=== PATIENT | female | born 1940 | race Hispanic/Latino ===

== ENCOUNTER → 2017-12-30 | Outpatient (CLI) | payer MEDICARE ==
--- NOTE | 2017-12-30 13:54 | Diagnostic Imaging Report ---
PROCEDURE:BONE DXA DUAL ENERGY INDICATION: Postmenopausal osteoporosis screening. The patient history questionnaire was completed and is available on PACS. COMPARISON:07/03/2016 and baseline examination on 09/13/2011 FINDINGS: Evaluation of the left hip and lumbar spine was performed utilizing DEXA Hologic bone densitometer. The study is technically adequate. The patient's fracture risk is compared to an age-matched control. The patient denies prior surgery/fracture of the spine, hips or forearm. Left femoral neck bone mineral density: 0.531 g/cm2, T-score is -2.9, Z-score is -0.8. Left total hip bone mineral density: 0.631 g/cm2, T-score is -2.5, Z-score is -0.6. The left total hip bone mineral density change versus baseline (09/13/2011) is -0.7%. The bone mineral density change versus the previous exam (07/03/2016) is -1.4%. Lumbar spine total bone mineral density: 0.760 g/cm2, T-score is -2.6, Z-score is -0.1. The lumbar spine total bone mineral density change versus baseline is -0.6%. The bone mineral density change versus the previous examination is +0.7% IMPRESSION: Bone mineralization by WHO Classification is osteoporosis. The fracture risk is high.. Correlate clinically for the necessity and timing of the next bone mineral density study. Dictated by: Flo Alatorre M.D. on 12/30/2017 at 14:00 Electronically approved by: Flo Alatorre M.D. on 12/30/2017 at 14:00
== END ==
LOC: MAMMO 12:48
PROVIDERS: ATTEND Family Medicine
DX: Z12.31 Encounter for screening mammogram for malignant neoplasm of breast (principal); Z13.820 Encounter for screening for osteoporosis; Z78.0 Asymptomatic menopausal state
CPT/HCPCS: 77067; 77080

== ENCOUNTER → 2018-03-09 | Outpatient (CLI) | payer MEDICARE ==
--- NOTE | 2018-03-09 13:43 | Diagnostic Imaging Report ---
EXAMINATION: PA and lateral views of the chest. COMPARISON: None CLINICAL HISTORY: Chest pain DISCUSSION: The lungs are well-inflated. No focal airspace consolidation, pleural effusion, or pneumothorax. Tortuosity and atherosclerotic calcification of the thoracic aorta. Normal heart size. No pulmonary edema. No acute osseous abnormality. IMPRESSION: No acute cardiopulmonary abnormalities. Signed by: Dr. Rodolfo Espinoza M.D. on 03/09/2018 1:40 PM
== END ==
LOC: RAD 12:55
PROVIDERS: ATTEND Internal Medicine Cardiovascular Disease
DX: R07.9 Chest pain, unspecified (principal)
CPT/HCPCS: 71046

== ENCOUNTER → 2019-02-03 | Outpatient (CLI) | payer OTHER ==
--- NOTE | 2019-02-03 15:15 | Diagnostic Imaging Report ---
EXAM: BONE MINERAL DENSITY HISTORY: Bone mineralization evaluation COMPARISON: None DISCUSSION: Evaluation of the left hip and lumbar spine was performed utilizing DEXA Hologic bone densitometer. The study is technically adequate. Left hip femoral neck bone mineral density: 0.57 g/cm2, T-score is -2.6, Z-score is -0.4. Left hip total bone mineral density: 0.64 g/cm2, T-score is -2.4, Z-score is -0.4. Bone mineralization increased by 1.8%. Lumbar spine total bone mineral density: 0.78 gm/cm2, T-score is -2.4, Z-score is 0.1. Bone mineralization increased by 2.5%. Impression: Bone mineralization by WHO Classification is osteoporosis, the fracture risk is increased. Signed by: Dr. Nirmal Bernabe M.D. on 02/03/2019 3:12 PM
--- NOTE | 2019-02-10 09:13 | Diagnostic Imaging Report ---
#[id number] - MGSCRBIL #BILATERAL DIGITAL SCREENING MAMMOGRAM WITH CAD: 02/03/2019 CLINICAL: Routine screening. Comparison is made to exams dated: 12/30/2017 mammogram and 07/03/2016 mammogram - [facility]. Current study contains 4 films. The tissue of both breasts is heterogeneously dense. This may lower the sensitivity of mammography. Current study was also evaluated with a Computer Aided Detection (CAD) system. Benign appearing calcifications are noted bilaterally. There are benign vascular calcifications in both breasts. No significant masses, calcifications, or other findings are seen in either breast. IMPRESSION: BENIGN There is no mammographic evidence of malignancy. A 1 year screening mammogram is recommended. The patient will be notified by letter of the results. SALOME GUADARRAMA M.D. ct/penrad:02/09/2019 17:19:49 Customer Development Representative: [place] MARTIN(Aminata)(Kenisha), [facility] letter sent: Normal Exam Mammogram BI-RADS: 2 Benign
== END ==
LOC: MAMMO 13:48
PROVIDERS: ATTEND Family Medicine
DX: Z12.31 Encounter for screening mammogram for malignant neoplasm of breast (principal); M81.0 Age-related osteoporosis without current pathological fracture
CPT/HCPCS: 77067; 77080

== ENCOUNTER → 2020-02-16 | Outpatient (CLI) | payer MEDICARE ==
--- NOTE | 2020-02-16 11:54 | Diagnostic Imaging Report ---
EXAM: BONE MINERAL DENSITY HISTORY: Osteoporosis COMPARISON: Bone density evaluation 02/03/2019 DISCUSSION: Evaluation of the left hip and lumbar spine was performed utilizing DEXA Hologic bone densitometer. The study is technically adequate. The patient's fracture risk is compared to an age-matched control. The patient denies prior surgery/fracture of the spine, hips or forearm. Left hip femoral neck bone mineral density: 0.552 g/cm2, T-score is -2.7, Z-score is -0.5. Left hip total bone mineral density: 0.648 g/cm2, T-score is -2.3, Z-score is -0.3. Total left hip bone mineral density has increased by 0.9% compared to previous exam, which is not statistically significant. Lumbar spine total bone mineral density: 0.785 gm/cm2, T-score is -2.4, Z-score is 0.2. Total lumbar spine bone mineral density has increased by 0.8% compared to previous exam, which is not statistically significant. Impression: Bone mineralization by WHO Classification is osteoporosis, the fracture risk is high. Signed by: Dr. Mohan Gibbons M.D. on 02/16/2020 11:51 AM
== END ==
LOC: MAMMO 10:14
PROVIDERS: ATTEND Family Medicine
DX: Z12.31 Encounter for screening mammogram for malignant neoplasm of breast (principal); M81.8 Other osteoporosis without current pathological fracture
CPT/HCPCS: 77067; 77080

== ENCOUNTER → 2021-04-03 | Outpatient (CLI) | payer MEDICARE | LOC: MAMMO 13:42 | PROVIDERS: ATTEND Family Medicine | DX: Z12.31 Encounter for screening mammogram for malignant neoplasm of breast (principal) | CPT/HCPCS: 77067 ==